=== PATIENT | female | born 1965 | race Caucasian/White ===

== ENCOUNTER 2017-03-31 08:48 | Emergency (ER) | payer BC ==
--- NOTE | 2017-03-31 09:05 | Emergency Department Record ---
History of Present Illness - General Chief complaint: Extremity Problem Stated complaint: RIGHT RING FINGER INJURY Time Seen by Provider: 03/31/17 08:56 Source: Patient, Family Mode of Arrival: Ambulatory Limitations: No limitations - History of Present Illness Initial comments: 52 yo female presents with a right 4th finger injury. The finger was crushed between 2 pieces of firewood. No loss of ROM. No loss of feeling. Tetanus is up to date less than 4 years. She did not see any FB. MD Complaint: Extremity pain -: Minutes(s) Location: Right -: Yes Arthralgia Radiation: None Quality: Aching Consistency: Constant Improves with: Nothing Worsens with: Nothing Associated Symptoms: Denies other symptoms - Related Data Home Medications Medication Instructions Recorded Confirmed Last Taken Cetirizine HCl [Allergy Relief] 10 mg PO DAILY 03/31/17 03/31/17 03/31/17 Levothyroxine Sodium 125 mcg PO 03/31/17 03/31/17 Meloxicam [Mobic] 7.5 mg PO DAILY 03/31/17 03/31/17 03/31/17 Omeprazole [Prilosec] 20 mg PO DAILY 03/31/17 03/31/17 03/31/17 Venlafaxine HCl [Effexor Xr] 150 mg PO DAILY 03/31/17 03/31/17 03/30/17 Previous Rx's Medication Instructions Recorded Clindamycin HCl 300 mg PO TID #21 capsule 03/31/17 Hydrocodone/Acetaminophen [False Pass 1 tab PO Q8H PRN #15 tab 03/31/17 5mg/325mg] Allergies Allergy/AdvReac Type Severity Reaction Status Date / Time Penicillins Allergy HIVES Verified 03/31/17 09:06 Sulfa (Sulfonamide Allergy HIVES Verified 03/31/17 09:06 Antibiotics) Review of Systems Constitutional: Denies: Chills, Fever, Weakness Eyes: Denies: Eye discharge ENT: Denies: Congestion, Throat pain Respiratory: Denies: Cough, Dyspnea, Hemoptysis, Wheezes Cardiovascular: Denies: Chest pain, Palpitations, Syncope Endocrine: Denies: Fatigue Gastrointestinal: Denies: Abdominal pain, Diarrhea, Nausea, Vomiting Genitourinary: Denies: Dysuria, Urgency Musculoskeletal: Reports: Arthralgia. Denies: Back pain, Joint swelling, Myalgia, Neck pain Skin: Denies: Bruising, Change in color, Pruritus Neurological: Denies: Confusion, Headache, Numbness, Tremors, Vertigo, Weakness Psychiatric: Denies: Anxiety Hematological/Lymphatic: Denies: Blood Clots, Easy bleeding, Easy bruising, Swollen glands Physical Exam - General General Appearance: Alert, Oriented x3, Cooperative, No acute distress Limitations: No limitations - Head Head exam: Atraumatic, Normal inspection - Eye Eye exam: Normal appearance, PERRL. negative: Conjunctival injection, Periorbital swelling - ENT ENT exam: Normal exam Ear exam: Normal external inspection Nasal Exam: Normal inspection Mouth exam: Normal external inspection Teeth exam: Normal inspection Throat exam: Normal inspection - Neck Neck exam: Normal inspection - Cardiovascular Cardiovascular Exam: Regular rate, Normal rhythm, Normal heart sounds Peripheral Pulses: 2+: Radial (R) - Rectal Rectal exam: Deferred - exam: Deferred - Extremities Extremities exam: Full ROM, Normal capillary refill, Tenderness. negative: Normal inspection Image of Hand: 1 - 2cm lateral finger laceration, full ROM, no visible FB on examination, no gross deformity 2 - 7mm linear clean laceration, full extension, no FB, - Back Back exam: Reports: Full ROM - Neurological Neurological exam: Alert, Oriented X3. negative: Motor sensory deficit - Psychiatric Psychiatric exam: Normal affect, Normal mood. negative: Agitated, Anxious, Depressed - Skin Skin exam: Dry, Intact, Normal color, Warm Course - Reevaluation(s) Reevaluation #1: Digital Block Sterile Prep. Lidocaine plain 1% 4ml Tolerated well. 03/31/17 09:07 Reevaluation #2: The XR was read as negative for acute injury Procedure laceration repair sterile prep copious irrigation of bother lacerations with pressure NS both areas examined in a bloodless field with brief use of a tourniquet No FB, No visible tendon injury Prolene 4-0 suture Laceration #2 2cm 6 sutures lateral Laceration #2 1cm 3 sutures dorsal Splinted and dress Kelfex Rx provided We discussed at length signs and symptoms of infection and reasons to return to the ED 03/31/17 10:22 03/31/17 13:55 Disposition Disposition: Discharge Clinical Impression: Finger laceration Qualifiers: Encounter type: initial encounter Qualified Code(s): S61.219A - Laceration without foreign body of unspecified finger without damage to nail, initial encounter Disposition: Home, Self-Care Condition: (1) Good Instructions: Laceration (ED) Additional Instructions: Immediate return if you have fever, redness, pain or any new concerns Return immediate if you have pus or drainage or changes in the function Use the splint for protection and support Suture removal in 10 days Prescriptions: Clindamycin HCl 300 mg PO TID #21 capsule Hydrocodone/Acetaminophen [False Pass 5mg/325mg] 1 tab PO Q8H PRN #15 tab PRN Reason: Pain - General Forms: Patient Portal Access Time of Disposition: 10:25
--- NOTE | 2017-04-05 08:48 | RADIOLOGY REPORT ---
EXAM: RIGHT HAND HISTORY: FINGER INJURY. TECHNIQUE: Three views of the right hand were obtained. Comparison: None. Encounter: Initial. FINDINGS: Soft tissue injury of the fourth digit. Negative for acute fracture or dislocation. IMPRESSION: NO ACUTE OSSEOUS ABNORMALITY. SOFT TISSUE INJURY DISTAL FOURTH DIGIT. JOB NUMBER: [id number] MTDD
== END 2017-03-31 10:49 | disposition home or self-care (01) ==
LOC: ER 08:48
DX: S61.214A Laceration without foreign body of right ring finger without damage to nail, initial encounter (principal); S61.212A Laceration without foreign body of right middle finger without damage to nail, initial encounter; W23.0XXA Caught, crushed, jammed, or pinched between moving objects, initial encounter
CPT/HCPCS: 12002; 99283; 99284